=== PATIENT | female | born 2005 | race Caucasian/White ===

== ENCOUNTER 2025-05-26 14:56 | Emergency (ER) | payer MEDICAID, OTHER ==
[~2025-05-26] VITALS: Ht 152.4 cm; Wt 53.6 kg
[~2025-05-26 14:56] MED LIST: CEPH-558 PO; POLY17PO62 PO
[2025-05-26 15:01] VITALS: BP 102/71; PULSE 65; RESP 18; TEMP 98.2; O2SAT 98
[2025-05-26 15:45] LABS: PLATELET COUNT (AUTO) 247 K/uL (150-450); RED BLOOD CELL COUNT(AUTO) 4.47 MIL/uL (4.00-5.20); RED CELL DISTRIBUTION WIDTH 12.9 % (11.5-14.5); WHITE BLOOD COUNT (AUTO) 5.0 K/uL (4.5-11.0)
[2025-05-26] MEDS: ACETAMINOPHEN 325 MG TABLET PO ONE (15:54)
[2025-05-26] MEDS: ONDANSETRON 4 MG TABLET PO ONE (15:54)
[2025-05-26] MEDS: FAMOTIDINE 20 MG TABLET PO ONE (15:54)
[2025-05-26 15:55] LABS: CALCIUM, TOTAL 8.5 mg/dL (8.8-10.5); CREATININE 0.53 mg/dL (0.60-1.30); GLOMERULAR FILTR. RATE CALC > 60 mL/min (>60); GLUCOSE,RANDOM 96 mg/dL (70-110); SODIUM SERUM 139 mmol/L (136-145); UREA NITROGEN, BLOOD 9 mg/dL (7-18)
[2025-05-26] MEDS ORDERED: ONDA-104 PO (16:35)
[2025-05-26] MEDS ORDERED: ACET-2247 PO (16:35)
[2025-05-26 16:39] LABS: ASPARTATE AMINOTRANSFERASE 19.0 U/L (15-37); TOTAL PROTEIN, SERUM 8.1 g/dL (6.4-8.2)
== END 2025-05-26 17:01 | disposition home or self-care (01) ==
LOC: EMS 14:56
DX: R11.0 Nausea (principal); R51.9 Headache, unspecified; J45.909 Unspecified asthma, uncomplicated
CPT/HCPCS: 99284; 80048; 80076; 83690; 84703; 85025; 36415; Q0162